=== PATIENT | male | born 2000 | race American Indian/Alaskan Native ===

== ENCOUNTER 2020-01-05 19:03 | Emergency (ER) | payer OTHER ==
--- NOTE | 2020-01-05 19:53 | Emergency Department Report ---
Blank Doc - Documentation Documentation: 19-year-old male that presents with dizziness, weakness, nausea, generalized b cynthia aches. This initial assessment/diagnostic orders/clinical plan/treatment(s) is/are subject to change based on patient's health status, clinical progression and re- assessment by fellow clinical providers in the ED. Further treatment and workup at subsequent clinical providers discretion. Patient/guardians urged not to elope from the ED as their condition may be serious if not clinically assessed and managed. Initial orders include: 1- Patient sent to [facility] for further evaluation and treatment 2- labs 3- UA
[2020-01-05 20:38] LABS: Basophils % (Auto) 0.3 % (0.0-1.8); Eosinophils % (Auto) 0.2 % (0.0-4.3); Hematocrit 43.3 % (35.5-45.6); Hemoglobin 14.3 gm/dl (11.8-15.2); Lymphocytes # (Auto) 1.4 K/mm3 (1.2-5.4); Lymphocytes % (Auto) 19.1 % (13.4-35.0); Mean Corpuscular HGB Conc 33 % (32-34); Mean Corpuscular Volume 83 fl (84-94); Monocytes # (Auto) 0.9 K/mm3 (0.0-0.8); Platelet Count 148 K/mm3 (140-440); Red Blood Count 5.23 M/mm3 (3.65-5.03); Red Cell Distribution Width 12.7 % (13.2-15.2)
[2020-01-05 20:53] VITALS: BP 133/72
[2020-01-05 20:55] LABS: Alanine Aminotransferase 18 units/L (7-56); Albumin 4.6 g/dL (3.9-5); BUN/Creatinine Ratio 12; Blood Urea Nitrogen 13 mg/dL (9-20); Calcium 9.3 mg/dL (8.4-10.2); Hemolysis Index 8
[2020-01-05] MEDS ORDERED: ACETAMINOPHEN 500 MG TAB PO ONE (21:49)
[2020-01-05] MEDS ORDERED: IBUPROFEN 600 MG TAB PO ONE (21:49)
[2020-01-05] MEDS ORDERED: ONDANSETRON 4 MG ODT TAB PO ONE (21:49)
--- NOTE | 2020-01-05 22:21 | XRay Report ---
CHEST 1 VIEW INDICATION: cough COMPARISON: None FINDINGS: Support devices: None Heart: Normal Lungs/Pleura: No acute pulmonary or pleural findings. IMPRESSION: 1. No acute disease. Signer Name: Dre Leonard MD Signed: 01/05/2020 10:17 PM Workstation Name: [id number]
--- NOTE | 2020-01-05 22:57 | Emergency Department Report ---
ED General Adult HPI - General Chief complaint: Nausea/Vomiting/Diarrhea Stated complaint: MUSCLE PAIN/DIZZY/NAUSEA Time Seen by Provider: 01/05/20 19:53 Source: patient Mode of arrival: Ambulatory Limitations: No Limitations - History of Present Illness Initial comments: Patient is a 19-year-old -[place] male with a history of asthma who presents to the ED with complaint of acute onset persistent nasal and sinus congestion, persistent dry cough with pleuritic chest pain and fever and chills for the last 2 days. Patient also complaints of nausea and vomiting with diffuse body aches and pains for the last 12 hours. Patient denies dizziness, syncope, abdominal pain, dysuria, urinary frequency and urgency, dysuria, urinary frequency and urgency, sore throat, diarrhea, testicular pain, shortness of breath or syncope. MD Complaint: Body aches; chills; headache; pleuritic chest pain; cough -: Sudden, days(s) (2) Location: chest, back Radiation: non-radiation Severity scale (0 -10): 6 Quality: aching, sharp Consistency: constant Improves with: none Worsens with: none Associated Symptoms: denies other symptoms, chest pain, cough, fever/chills, headaches, loss of appetite, malaise, nausea/vomiting. denies: confusion, diaphoresis, rash, seizure, shortness of breath, syncope Treatments Prior to Arrival: none - Related Data Previous Rx's Medication Instructions Recorded Last Taken Type Albuterol *Only Ed* [Proventil 2.5 mg IH Q4H PRN #1 box 01/17/14 Unknown Rx 0.5% NEBS] Albuterol Mdi (or & Nicu Only) 2 puff IH QID PRN #1 inhalation 01/17/14 Unknown Rx [ProAir HFA Inhaler] Cetirizine HCl [Zyrtec] 10 mg PO DAILY #30 capsule 01/17/14 Unknown Rx Fluticasone [Flonase] 1 spray NS QDAY #1 bottle 01/17/14 Unknown Rx Naphazoline HCl/Pheniramine 15 ml OU QID #1 drops 01/17/14 Unknown Rx [Naphcon-A Eye Drops] predniSONE [Prednisone] 20 mg PO DAILY #5 tablet 01/17/14 Unknown Rx Azithromycin [Zithromax Z-BRANDON] 250 mg PO DAILY #6 tablet 01/05/20 Unknown Rx Benzonatate [Tessalon Perles] 100 mg PO Q8HR #30 capsule 01/05/20 Unknown Rx Ibuprofen [Motrin] 800 mg PO Q8HR PRN #30 tablet 01/05/20 Unknown Rx Ondansetron [Zofran Odt] 4 mg PO Q6HR PRN #20 tab.rapdis 01/05/20 Unknown Rx Allergies Allergy/AdvReac Type Severity Reaction Status Date / Time peanut Allergy Swelling Verified 01/17/14 17:42 ED Review of Systems ROS: Stated complaint: MUSCLE PAIN/DIZZY/NAUSEA Other details as noted in HPI Constitutional: chills, fever, malaise Eyes: denies: eye pain, eye discharge, vision change ENT: congestion. denies: ear pain, throat pain Respiratory: cough. denies: shortness of breath, wheezing Cardiovascular: chest pain (Pleuritic chest wall pain with cough). denies: pal pitations Endocrine: no symptoms reported Gastrointestinal: nausea, vomiting. denies: abdominal pain, diarrhea Genitourinary: denies: urgency, dysuria Musculoskeletal: denies: back pain, joint swelling, arthralgia Skin: denies: rash, lesions Neurological: headache. denies: weakness, paresthesias Psychiatric: denies: anxiety, depression Hematological/Lymphatic: denies: easy bleeding, easy bruising ED Past Medical Hx - Past Medical History Hx Asthma: Yes - Surgical History Hx Appendectomy: Yes Additional Surgical History: bilateral bunyon removals. adenoidectomy - Social History Smoking Status: Never Smoker Substance Use Type: None - Medications Home Medications: Home Medications Medication Instructions Recorded Confirmed Last Taken Type Albuterol *Only Ed* [Proventil 2.5 mg IH Q4H PRN #1 box 01/17/14 Unknown Rx 0.5% NEBS] Albuterol Mdi (or & Nicu Only) 2 puff IH QID PRN #1 inhalation 01/17/14 Unknown Rx [ProAir HFA Inhaler] Cetirizine HCl [Zyrtec] 10 mg PO DAILY #30 capsule 01/17/14 Unknown Rx Fluticasone [Flonase] 1 spray NS QDAY #1 bottle 01/17/14 Unknown Rx Naphazoline HCl/Pheniramine 15 ml OU QID #1 drops 01/17/14 Unknown Rx [Naphcon-A Eye Drops] predniSONE [Prednisone] 20 mg PO DAILY #5 tablet 01/17/14 Unknown Rx Azithromycin [Zithromax Z-BRANDON] 250 mg PO DAILY #6 tablet 01/05/20 Unknown Rx Benzonatate [Tessalon Perles] 100 mg PO Q8HR #30 capsule 01/05/20 Unknown Rx Ibuprofen [Motrin] 800 mg PO Q8HR PRN #30 tablet 01/05/20 Unknown Rx Ondansetron [Zofran Odt] 4 mg PO Q6HR PRN #20 tab.rapdis 01/05/20 Unknown Rx ED Physical Exam - General Limitations: No Limitations General appearance: alert, in no apparent distress - Head Head exam: Present: atraumatic, normocephalic, normal inspection - Eye Eye exam: Present: normal appearance, PERRL, EOMI Pupils: Present: normal accommodation - ENT ENT exam: Present: normal orophraynx, mucous membranes moist, TM's normal bilaterally, normal external ear exam, other (Grossly congested nasal passages) - Neck Neck exam: Present: normal inspection, full ROM. Absent: tenderness, lymphadenopathy - Respiratory Respiratory exam: Present: normal lung sounds bilaterally. Absent: respiratory distress, wheezes, rales, rhonchi, chest wall tenderness, accessory muscle use, decreased breath sounds, prolonged expiratory - Cardiovascular Cardiovascular Exam: Present: normal rhythm, tachycardia, normal heart sounds. Absent: systolic murmur, diastolic murmur, rubs, gallop - GI/Abdominal GI/Abdominal exam: Present: soft, normal bowel sounds. Absent: tenderness, guarding, rebound, hyperactive bowel sounds, hypoactive bowel sounds, organomegaly - Extremities Exam Extremities exam: Present: normal inspection, full ROM, normal capillary refill - Back Exam Back exam: Present: normal inspection, full ROM. Absent: tenderness, CVA tenderness (R), CVA tenderness (L), muscle spasm, paraspinal tenderness - Neurological Exam Neurological exam: Present: alert, oriented X3, CN II-XII intact, normal gait, reflexes normal - Psychiatric Psychiatric exam: Present: normal affect, normal mood - Skin Skin exam: Present: warm, dry, intact, normal color. Absent: rash ED Course Vital Signs 01/05/20 01/05/20 19:54 23:17 Temperature 102.6 F H 99.8 F H Pulse Rate 112 H 92 H Respiratory 20 17 Rate Blood Pressure 133/72 O2 Sat by Pulse 99 100 Oximetry ED Medical Decision Making - Lab Data Result diagrams: 01/05/20 20:10 01/05/20 20:10 - Radiology Data Radiology results: report reviewed, image reviewed Findings [facility] [address] [place] [address] XRay Report Signed Patient: FABIENNE SMITH JR MR#: [id number] : 2000 Acct:[id number] Age/Sex: 19 / M ADM Date: 01/05/20 Loc: ED Attending Dr: Ordering Physician: ANNABELLA AVALOS Date of Service: 01/05/20 Procedure(s): XR chest 1V ap Accession Number(s): [id number] cc: ANNABELLA AVALOS Fluoro Time In Minutes: CHEST 1 VIEW INDICATION: cough COMPARISON: None FINDINGS: Support devices: None Heart: Normal Lungs/Pleura: No acute pulmonary or pleural findings. IMPRESSION: 1. No acute disease. Signer Name: Dre Leonard MD Signed: 01/05/2020 10:17 PM Workstation Name: [id number] Transcribed By: TM Dictated By: Dre Leonard MD Electronically Authenticated By: Dre Leonard MD Signed Date/Time: 01/05/202216 DD/ 15 TD/TT: - Medical Decision Making This is a 19-year-old -[place] male with a history of asthma who presents to the ED with complaint of acute onset persistent nasal and sinus congestion, persistent dry cough with pleuritic chest pain and fever and chills for the last 2 days. Patient also complaints of nausea and vomiting with diff use body aches and pains for the last 12 hours. In the ED, patient is alert and oriented x3 and is not in distress but is tachycardic and febrile in triage. Patient was treated in the ED with antiemetics and pain medications. Chest x- ray shows no acute cardiopulmonary abnormalities or pneumonitis. On reevaluation, patient's tachycardia resolved medications. Patient was discharged home on pain medications and was advised to follow-up with his primary care physician in 7 to 10 days for reevaluation or return to the ED immediately if symptoms get worse. - Differential Diagnosis Flulike symptoms; bronchitis; viral URI Critical care attestation.: If time is entered above; I have spent that time in minutes in the direct care of this critically ill patient, excluding procedure time. ED Disposition Clinical Impression: Flu-like symptoms, Fever with chills Acute bronchitis Qualifiers: Bronchitis organism: other organism Qualified Code(s): J20.8 - Acute bronchitis due to other specified organisms Upper respiratory infection Qualifiers: URI type: unspecified URI Qualified Code(s): J06.9 - Acute upper respiratory infection, unspecified Disposition: TO HOME OR SELFCARE Is pt being admited?: No Does the pt Need Aspirin: No Condition: Stable Instructions: Upper Respiratory Infection (ED), Acute Bronchitis (ED) Additional Instructions: Chest x-ray shows no acute cardiopulmonary abnormalities or pneumonitis. Therefore take medications with food, drink plenty of fluids and follow-up with your primary care physician in 7 to 10 days for reevaluation. Return to the ED immediately if symptoms get worse. Prescriptions: Ibuprofen [Motrin] 800 mg PO Q8HR PRN #30 tablet PRN Reason: Pain , Severe (7-10) Benzonatate [Tessalon Perles] 100 mg PO Q8HR #30 capsule Azithromycin [Zithromax Z-BRANDON] 250 mg PO DAILY #6 tablet Ondansetron [Zofran Odt] 4 mg PO Q6HR PRN #20 tab.rapdis PRN Reason: Nausea Referrals: [facility] [Provider Group] - 3-5 Days Forms: Work/School Release Form(ED) Time of Disposition: 22:58 Print Language: THAI
== END 2020-01-05 23:17 | disposition home or self-care (01) ==
LOC: ED 19:03
DX: J20.8 Acute bronchitis due to other specified organisms (principal); J06.9 Acute upper respiratory infection, unspecified; J11.1 Influenza due to unidentified influenza virus with other respiratory manifestations; J45.909 Unspecified asthma, uncomplicated; Z90.89 Acquired absence of other organs; Z79.899 Other long term (current) drug therapy; Z91.010 Allergy to peanuts
CPT/HCPCS: 36415; 71045; 80053; 85025; 99283; Q0162